=== PATIENT | female | born 1995 | race Caucasian/White ===

== ENCOUNTER 2018-12-02 13:53 | Emergency (ER) | payer OTHER ==
[2018-12-02] MEDS: ACETAMINOPHEN 325 MG TAB PO (18:40)
[2018-12-02] MEDS: IBUPROFEN 600 MG TAB PO (18:40)
== END 2018-12-02 18:45 | disposition home or self-care (01) ==
LOC: FTE 18:45
DX: R50.9 Fever, unspecified (principal); R05 Cough
CPT/HCPCS: 99283; Z7502